=== PATIENT | male | born 1955 | race Caucasian/White ===

== ENCOUNTER 2020-10-03 07:30 | Observation (INO) | payer OTHER ==
[2020-10-03] VITALS (15 sets, daily range): BP systolic 11–158; BP diastolic 51–66
[~2020-10-03] VITALS: Ht 182.9 cm; Wt 121.6 kg
[~2020-10-03 07:30] MED LIST: ADULT LOW DOSE81 MG PO; AMARYL2 M1 PO; JANUMET 50-1,01 EACH PO; LIPITOR40 MG PO; LOSARTAN POTAS100 MG PO; SYNTHROID200 MCG PO; VIAGRA50 MG PO
[2020-10-03 08:13] LABS: HEMATOCRIT 38.9 % (42.0-52.0); HEMOGLOBIN 13.5 gm/dL (14.0-18.0); MCH 29.5 pg (26.0-34.0); MCHC 34.6 g/dL (28.0-37.0); MCV 85.2 fL (80.0-100.0); RBC 4.56 mil/uL (4.50-6.00); RDW-CV 13.9 % (10.5-14.5); WBC 6.5 thou/uL (4.0-11.0)
[2020-10-03 08:18] LABS: ANION GAP 7 mmol/L (7-16); BUN 15 mg/dL (7-18); CALCIUM 9.1 mg/dL (8.5-10.1); CHLORIDE 100 mmol/L (98-107); CO2 28 mmol/L (21-32); CREATININE 1.1 mg/dL (0.6-1.3); GLUCOSE 310 mg/dL (70-99); POTASSIUM 3.8 mmol/L (3.5-5.1); SODIUM 135 mmol/L (136-145)
[2020-10-03 08:20] LABS: APTT 25.6 Seconds (25.0-31.3); PROTIME 10.5 Seconds (9.20-11.50)
[2020-10-03 08:22] LABS: ALBUMIN 4.1 g/dL (3.4-5.0); ALKALINE PHOSPHATASE 89 U/L (46-116); CHOLESTEROL 114 mg/dL (<200); HDL CHOLESTEROL 26 mg/dL (>40); LDL CHOLESTEROL 48 mg/dL (<100); SGOT 26 U/L (15-37); SGPT 41 U/L (30-65); TC:HDL 4.4 Ratio (Not establshd); TOTAL BILIRUBIN 0.8 mg/dL (<0.1-1.0); TOTAL PROTEIN 8.1 g/dL (6.4-8.2); TRIGLYCERIDE 200 mg/dL (<150); VLDL 40 mg/dL (<40)
[2020-10-03] MEDS ORDERED: AMARYL4 MG PO (08:23)
[2020-10-03] MEDS ORDERED: LIPITOR10 MG PO (08:23)
[2020-10-03] MEDS ORDERED: FLOMAX0.4 MG PO (08:26)
[2020-10-03 08:28] LABS: SERUM ASSESSMENT Clear
--- NOTE | 2020-10-03 14:16 | EKG ---
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
--- NOTE | 2020-10-03 14:20 | EKG ---
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 : 1955 Requested By: Beka Borrero Order Number: [id number] Reading MD: Beka Borrero Measurements Intervals [place] Rate: 63 P: 66 [place]: 234 QRS: 44 QRSD: 103 T: 50 QT: 420 QTc: 430 Interpretive Statements Sinus rhythm Multiple premature complexes, vent & supraven Prolonged [place] interval Compared to ECG 10/03/2020 08:23:29 PACs and PVCs have appeared Electronically Signed On 10-03-2020 14:20:40 CDT by Beka Borrero [email or web address] <ELECTRONICALLY SIGNED> By: Beka Borrero MD, [facility] 10/03/20 1420 1209 1209 Beka Borrero MD, [facility] /EPI
--- NOTE | 2020-10-03 14:20 | EKG ---
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
--- NOTE | 2020-10-03 15:55 | CARD ---
[address] [address] CARDIAC CATH REPORT Name: SANJANA LEE Room: [address] Fred Dugan#: [id number] Admission: 10/03/20 Attend Phys: Beka Borrero MD, Discharge: Date of : 55 Report #: [id number] THIS REPORT FOR: cc: Miguel Pace MD, Todd MD Holkins,Beka Schneider MD [facility] ~ APPROVED REPORT Study performed: 10/03/2020 09:28:54 Patient Details Patient Status: Out-Patient Room #: The patient is a 64 year-old male Event Personnel Beka Borrero Data Warehouse Analyst, Mame Parr RN Tandem Mill Roller, Paramjit Farley RTR Scrub, Sarah Houston RTR Monitor Procedures Performed Art Access - R femoral artery, Left Heart Cath w/or w/o Coronaries LHC , TIFF Place w/wo Plasty Single LAD , TIFF Place w/wo Plasty Single RCA , Hemostasis w/ Angioseal Indication Dyspnea, Positive stress test Risk Factors Obesity, Hypercholesterolemia, Hypertension Previous Procedures/Diagnoses Previous PCI Admission/Lab Medications/Medications given during procedure Angiomax IV 18 ml, Angiomax Drip IV 42.6 ml per hr, Effient PO 60 mg, Aspirin PO 162 mg Procedure Narrative The patient was brought electively to the Cardiac Catheterization Laboratory and was prepped and draped in a sterile manner. The right femoral was infiltrated with 2% Lidocaine subcutaneous anesthesia. IV conscious sedation was used throughout procedure with appropriate monitoring and was performed in the presence of a registered nurse who was an independent trained observer [place] [address] CARDIAC CATH REPORT Name: SANJANA LEE Room: [address] Ritchie#: [id number] Admission: 10/03/20 Attend Phys: Beka Borrero MD, Discharge: Date of : 55 Report #: [id number] performing the procedure. A 6fr Ultimum sheath was inserted into the right femoral artery. Coronary angiography was performed using coronary diagnostic catheters. The right coronary system was accessed and visualized with a 6F JR4 catheter. The left coronary system was accessed and visualized with a 6F JL4 catheter. The left ventricle was accessed and visualized with a 6F Pigtail catheter. Left ventricular/Aortic Valve gradient assessed via catheter pullback. Left ventriculogram was performed in PATTEN projection. Pre-demployment femoral angiogram was performed . Closure device was deployed with a 6 Fr Angioseal STS. The patient tolerated the procedure well and there were no complications associated with the procedure. There was no hematoma. Intraoperative Conscious Sedation Sedation start time: 09:44 Case end Time: 11:08 Fentanyl 25 mcg Versed 2 mg Fluoro Time: 20.1 minutes Dose: DAP 221747 cGycm2 3646 mGy Contrast Type and Amount: Visipaque 370 ml Coronary Angiography The patient's coronary anatomy is right dominant. Diagnostic Cath Left Main 10% distal narrowing LAD 75% calcified tubular mid LAD stenosis with 40% distal LAD narrowing and 80% narrowing of a subbranch of the first diagonal branch of the LAD Circumflex 40% proximal and mid vessel narrowing Right Coronary Dominant vessel with 30% proximal narrowing, 90% focal stenosis at the acute margin and 40% distal narrowing Left Ventriculography The left ventricle is normal in size with normal contractility. The left ventricular ejection fraction is estimated to be 65%. Left ventricular wall motion abnormalities are not present. There is no mitral insufficiency. Hemodynamics The aortic pressure is 92/55 mmHg with a mean of 71 mmHg. The left ventricular pressure is 92/4 mmHg with a mean of mmHg. The left ventricular end diastolic pressure is 14 [place] [address] CARDIAC CATH REPORT Name: SANJANA LEE Room: [address]#: [id number] Admission: 10/03/20 Attend Phys: Beka Borrero MD, Discharge: Date of : 55 Report #: [id number] PCI Technique Lesion Anticoagulation was achieved with Angiomax. Patient was preloaded with Angiomax IV 18 ml. Percutaneous coronary intervention was performed on the mid left anterior descending artery segment. The lesion stenosis prior to intervention was 75% with DRU 3 flow. A 6F XB 3.5 Guide Catheter was used to engage the left ostium. A BMW 190 cm Interventional Guidewire was used to cross the lesion. BALLOON DILATION A Balloon catheter Trek 2.25 x 15 was inserted and inflated up to 14.00atm for 15seconds. Additional Inflation: 15.00atm for 10seconds. A NC Trek 2.25 x 12 balloon catheter was inserted and inflated up to 18 ousmane for 11 seconds. STENT DEPLOYMENT A drug-eluting stent Harris RX 2.25 x 30 was inserted and inflated up to 12.00atm for 9seconds. Additional Inflation: 16.00atm for 14seconds. Final angiography reveals 0 % stenosis with DRU 3 flow. COMMENTS A ProwaterFlex 180 cm guidewire was inserted as a jean carlos wire. PCI Technique Lesion 2 Percutaneous Coronary Intervention was performed on the mid right coronary artery. Patient was preloaded with Angiomax IV 18 ml. The lesion stenosis prior to intervention was 90% with DRU 3 flow. A 6F JR 4.0 Guide Catheter was used to engage the right ostium. A ProwaterFlex 180 cm Interventional Guidewire was used to cross the lesion. Balloon Dilation A Balloon catheter Trek 2.5 x 12 was inserted and inflated up to 14.00atm for 13seconds. Stent Deployment A drug-eluting stent Harris RX 3.0 x 12 was inserted and inflated up to 12.00atm for 8seconds. Additional Inflation: 15.00atm for 9seconds. Final angiography reveals 0 % stenosis with DRU 3 [place] [address] CARDIAC CATH REPORT Name: SANJANA LEE Room: [address] Fred Dugan#: [id number] Admission: 10/03/20 Attend Phys: Beka Borrero MD, Discharge: Date of : 55 Report #: [id number] 1. Significant coronary artery disease characterized by the following: A 10% distal left main coronary artery narrowing B 75% calcified tubular mid LAD stenosis with 40% distal narrowing and 80% stenosis of a subbranch of the first diagonal branch of the LAD C 40% proximal and mid circumflex narrowing, this being a nondominant vessel D large dominant right coronary artery with 30% proximal narrowing 90% stenosis at the acute margin and 40% distal narrowing 2. Normal left ventricular systolic function, estimate ejection fraction being 65% 3. Normal left-sided hemodynamic study 4. Successful PCI with deployment of drug-eluting stent at the site of 75% tubular mid LAD stenosis with 0% residual narrowing and DRU-3 flow the distal vessel 5. Successful PCI with deployment of drug-eluting stent at the site of 90% stenosis of the right coronary artery at the acute margin with 0% residual narrowing and DRU-3 flow to the distal vessel Recommendations Cardiac Risk Reduction Program Aggressive Medical Therapy Medications Administered Aspirin (any) Prasugrel Diagnostic Cath Approved by: Beka Borrero MD Date/Time: 10/03/2020 15:52:12 <ELECTRONICALLY SIGNED> By: Beka Borrero MD, [facility] 10/03/20 1555 1555 1555Beka Borrero MD, FAC /INF
[2020-10-04 04:18] VITALS: BP 125/59
[2020-10-04 04:38] LABS: HEMATOCRIT 32.6 % (42.0-52.0); HEMOGLOBIN 11.7 gm/dL (14.0-18.0); MCH 30.5 pg (26.0-34.0); MCHC 35.8 g/dL (28.0-37.0); MCV 85.1 fL (80.0-100.0); MPV 9.2 fl. (7.2-11.1); RBC 3.83 mil/uL (4.50-6.00); RDW-CV 13.9 % (10.5-14.5); WBC 6.8 thou/uL (4.0-11.0)
[2020-10-04 05:00] LABS: ALBUMIN 3.4 g/dL (3.4-5.0); ALKALINE PHOSPHATASE 74 U/L (46-116); ANION GAP 7 mmol/L (7-16); BUN 14 mg/dL (7-18); CALCIUM 8.4 mg/dL (8.5-10.1); CHLORIDE 103 mmol/L (98-107); CO2 29 mmol/L (21-32); CREATININE 0.9 mg/dL (0.6-1.3); GLUCOSE 209 mg/dL (70-99); POTASSIUM 3.7 mmol/L (3.5-5.1); SGOT 26 U/L (15-37); SGPT 35 U/L (30-65); SODIUM 139 mmol/L (136-145); TOTAL BILIRUBIN 0.8 mg/dL (<0.1-1.0); TOTAL PROTEIN 6.8 g/dL (6.4-8.2); TROPONIN-I LEVEL <0.06 ng/mL (<0.06)
[2020-10-04 08:00] VITALS: BP 123/83
[2020-10-04] MEDS ORDERED: LIPITOR40 MG PO (08:10)
[2020-10-04] MEDS ORDERED: EFFIENT10 MG PO (08:13)
--- NOTE | 2020-10-04 08:42 | EKG ---
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: : 1955 Requested By: Beka Borrero Order Number: [id number] Reading MD: Dawson Beckham Measurements Intervals [place] Rate: 65 P: 37 SC: 218 QRS: 38 QRSD: 103 T: 31 QT: 414 QTc: 431 Interpretive Statements Sinus rhythm Ventricular premature complex Borderline prolonged [place] interval Compared to ECG 10/03/2020 12:10:53 Ventricular premature complex(es) now present Electronically Signed On 10-04-2020 8:41:53 CDT by Dawson Beckham [email or web address] <ELECTRONICALLY SIGNED> By: Dawson Beckham MD, [facility] 10/04/20840 9 9 Dawson Beckham MD, [facility] /EPI
[2020-10-04 10:50] VITALS: BP 117/64
[2020-10-04 11:17] VITALS: BP 117/64
[2020-10-04] MEDS ORDERED: NITROGLYCERIN0.4 MG SUBLING (11:18)
--- NOTE | 2020-10-06 11:11 | D ---
[address] [address] DISCHARGE SUMMARY Name: SANJANA LEE Room: [address] Fred Duagn#: [id number] Admission: 10/03/20 Attend Phys: Beka Borrero MD, Discharge: 10/04/20 Date of : 55 Report #: [id number] THIS REPORT FOR: cc: Miguel Pace MD, Todd MD Holkins,Beka Schneider MD [facility] ~ DOC #: [id number] Beka Borrero MD [facility] DATE OF DISCHARGE: 10/04/2020 LOCATION: The patient discharged from [facility]. FINAL DISCHARGE DIAGNOSES: 1. Abnormal nuclear stress test. 2. Coronary artery disease. 3. Hypertension. 4. Hyperlipidemia. 5. Diabetes mellitus. 6. Obesity. 7. Status post PCI to the mid LAD and the mid right coronary artery. The patient is a very pleasant 64-year-old male with coronary artery disease status post prior PCIs. Recently, he has noted increased dyspnea on exertion without accompanying chest discomfort. Nuclear stress test revealed inducible anterior ischemia. He has underlying hypertension, hypercholesterolemia and diabetes. In this context, I performed cardiac catheterization on 10/03/2020. That study revealed 75% calcified tubular mid LAD narrowing with 80% narrowing of a small sub-branch of the first diagonal branch of the LAD. There was a 90% right coronary narrowing at the acute margin with mild narrowing proximally and 40% distal right coronary artery. In this context, I performed PCI, deploying 1 Solomon drug-eluting stent in the mid LAD with 0% residual narrowing and one 3.0 x 12 mm Solomon drug-eluting stent in the mid right coronary artery with 0% residual narrowing. He did well post-procedurally and ambulated in the hallways without difficulty with good hemostasis at the right femoral site of catheterization. Laboratory on 10/04 revealed sodium 139, potassium 3.7, BUN 14, creatinine 0.9, glucose 209. Hemoglobin 11.7, white blood cell count 6800 with 134,000 platelets. Cholesterol 114, triglycerides 200, HDL 26, LDL 48. He was discharged home on the following medications: Prasugrel or Effient [address] [place] [address] DISCHARGE SUMMARY Name: SANJANA LEE Room: [address] Ritchie#: [id number] Admission: 10/03/20 Attend Phys: Beka Borrero MD, Discharge: 10/04/20 Date of : 55 Report #: [id number] daily, aspirin 81 mg daily, L-thyroxine 200 mcg daily, losartan 100 mg daily, Janumet 50 one b.i.d., glimepiride 4 mg b.i.d., tamsulosin or Flomax 0.4 mg daily and atorvastatin 40 mg daily. I will plan to see the patient in followup on 06/28 at 1120 hours at the [facility] office. Therefore, the patient is discharged home in stable condition on the aforementioned medications with followup as iterated above. Beka Borrero MD [facility]/ORKathrine <ELECTRONICALLY SIGNED> By: Beka Borrero MD, [facility] 10/06/20 1111 0919 1220Jochase Borrero MD, [facility] /nt
--- NOTE | 2020-10-06 11:11 | H ---
[place] [address] HISTORY AND PHYSICAL Name: SANJANA LEE Rosario Room: [address] Fred Dugan#: [id number] Admission: 10/03/20 Attend Phys: Beka Borrero MD, Discharge: 10/04/20 Date of : 55 Report #: [id number] THIS REPORT FOR: cc: Miguel Pace MD, Todd MD Holkins,Beka Schneider MD [facility] ~ DOC #: [id number] Beka Borrero MD [facility] ADMIT DATE: 10/03/2020 HISTORY OF PRESENT ILLNESS: The patient is a very pleasant 64-year-old male with coronary artery disease. He has a history of remote PCI. Recently, he denied chest discomfort, but has noted increasing shortness of breath with activity. He has not had accompanying chest discomfort. There is underlying hypertension, hyperlipidemia, diabetes, and weight excess. He remains compliant with antiplatelet antihypertensive lipid lowering and diabetic therapy. MEDICATIONS: Include the following: Aspirin 81 mg daily, atorvastatin 40 mg daily, Amaryl 2 mg daily, Synthroid 200 mcg daily, losartan 100 mg daily, Viagra p.r.n., Janumet one tablet b.i.d. PAST MEDICAL HISTORY: Remarkable for hyperlipidemia, diabetes, hypothyroidism and weight excess. SOCIAL HISTORY: The patient is a nonsmoker. FAMILY HISTORY: Remarkable for heart disease in his mother. REVIEW OF SYSTEMS: Remarkable for the following; GENERAL: Chronic weight excess. ENDOCRINE: He has treated hypothyroidism. MUSCULOSKELETAL: He notes mild chronic arthritic complaints. Remainder of the 10-point review of systems unremarkable. PHYSICAL EXAMINATION: GENERAL: Physical exam demonstrates an overweight middle-aged male. VITAL SIGNS: Blood pressure is 140/72, pulse rate is 82, respirations are 18 per minute. NECK: Jugular venous pressure is normal. CHEST: Clear. CARDIAC: Reveals normal first and second heart sounds without rubs, murmurs [place] [address] HISTORY AND PHYSICAL Name: SANJANA LEE Room: [address] M..#: [id number] Admission: 10/03/20 Attend Phys: Beka Borrero MD, Discharge: 10/04/20 Date of : 55 Report #: [id number] ABDOMEN: Moderately obese. EXTREMITIES: Without edema with intact femoral, pedal and radial pulses. LABORATORY DATA: Recent nuclear stress is reviewed, the patient walked for slightly less than 6 minutes according to a standard Aubrey protocol. He developed 4 mm of downsloping inferolateral ST segment depression strongly suggestive of ischemia. Radionuclide scans revealed a fixed inferior basilar defect and a large area of inducible anteroapical ischemia. IMPRESSION: 1. Recent nuclear stress test significant inducible anteroapical ischemia. 2. Increased dyspnea on exertion. 3. Coronary artery disease status post remote percutaneous coronary intervention. 4. Hypercholesterolemia. 5. Diabetes. 6. Hypertension. 7. Exogenous obesity. RECOMMENDATIONS: Given the aforementioned clinical scenario with increased dyspnea on exertion and remarkably abnormal stress test in stage II of Aubrey protocol with marked ST-T changes and accompanying radionuclide scan abnormality suggesting anteroapical ischemia, I would recommend proceeding with cardiac catheterization to define current coronary anatomy and outline the prospects for subsequent therapy. Beka Borrero MD [facility]/ANI <ELECTRONICALLY SIGNED> By: Beka Borrero MD, [facility] 10/06/20 1111 1031 1146Jochase Borrero MD, [facility] /nt
== END 2020-10-04 11:37 | disposition home or self-care (01) ==
LOC: M.CL 07:30 → M.TBA-CV 10:08 → M.2W 10:08
PROVIDERS: ADMIT Internal Medicine; ATTEND Internal Medicine
DX: I25.10 Atherosclerotic heart disease of native coronary artery without angina pectoris (principal); Z20.822 Contact with and (suspected) exposure to COVID-19; E78.00 Pure hypercholesterolemia, unspecified; I10 Essential (primary) hypertension; E78.5 Hyperlipidemia, unspecified; E11.9 Type 2 diabetes mellitus without complications; E66.9 Obesity, unspecified; Z68.36 Body mass index [BMI] 36.0-36.9, adult; Z79.82 Long term (current) use of aspirin; Z79.899 Other long term (current) drug therapy